=== PATIENT | male | born 2000 | race Hispanic/Latino ===

== ENCOUNTER 2021-10-27 02:52 | Emergency (ER) | payer SELFPAY ==
[2021-10-27 03:05] VITALS: BP 144/66
--- NOTE | 2021-10-27 04:50 | Emergency Department Report ---
ED ENT HPI - General Chief complaint: Dental/Oral Stated complaint: DENTAL PAIN Time Seen by Provider: 10/27/21 04:44 Source: patient Mode of arrival: Ambulatory Limitations: No Limitations - History of Present Illness Initial comments: 21-year-old male presents to the ER today with complaints of dental pain to right lower jaw. Patient states that has been having pain to one of his posterior right lower molars off and on for about 2 months. He states that he had a root canal to one of the molars few years ago but the cap fell off about 2 months ago. He states that in the past week he has been having increasing pain to the right lower molar and last night got worse and this morning noticed swelling to his right lower jaw. He states that he currently does not have a dentist. They are currently visiting from [place]. He has been taking Tyl enol without much relief of pain. He denies any fever, chills, trismus, drooling or any additional symptoms at this time. MD complaint: tooth pain -: week(s) (1) - Related Data Previous Rx's Medication Instructions Recorded Last Taken Type Acetaminophen/Codeine [Tylenol 2 tab PO Q4HR PRN #10 tablet 10/27/21 Unknown Rx /Codeine # 3 tab] Amoxicillin [Trimox CAP] 500 mg PO Q8H #30 capsule 10/27/21 Unknown Rx Ketorolac [Toradol] 10 mg PO Q6HR PRN #20 tablet 10/27/21 Unknown Rx ED Dental HPI - General Chief complaint: Dental/Oral Stated complaint: DENTAL PAIN Time Seen by Provider: 10/27/21 04:44 Source: patient Mode of arrival: Ambulatory Limitations: No Limitations - Related Data Previous Rx's Medication Instructions Recorded Last Taken Type Acetaminophen/Codeine [Tylenol 2 tab PO Q4HR PRN #10 tablet 10/27/21 Unknown Rx /Codeine # 3 tab] Amoxicillin [Trimox CAP] 500 mg PO Q8H #30 capsule 10/27/21 Unknown Rx Ketorolac [Toradol] 10 mg PO Q6HR PRN #20 tablet 10/27/21 Unknown Rx ED Review of Systems ROS: Stated complaint: DENTAL PAIN Other details as noted in HPI Comment: All other systems reviewed and negative Constitutional: denies: chills, fever Eyes: denies: eye pain, eye discharge, vision change ENT: dental pain. denies: ear pain, throat pain, hearing loss, epistaxis, congestion Respiratory: denies: cough, shortness of breath, SOB with exertion, SOB at rest, wheezing Cardiovascular: denies: chest pain, palpitations, dyspnea on exertion, edema, syncope, paroxysmal nocturnal dyspnea Gastrointestinal: denies: abdominal pain, nausea, diarrhea Genitourinary: denies: urgency, dysuria, frequency, hematuria, discharge, testicular pain, testicular mass Musculoskeletal: denies: back pain, joint swelling, arthralgia Skin: denies: rash, lesions, change in color, change in hair/nails, pruritus Neurological: denies: headache, weakness, numbness, paresthesias, confusion, abnormal gait, vertigo Psychiatric: denies: anxiety, depression, auditory hallucinations, visual hallucinations, homicidal thoughts, suicidal thoughts Hematological/Lymphatic: denies: easy bleeding, easy bruising, swollen glands ED Past Medical Hx - Medications Home Medications: Home Medications Medication Instructions Recorded Confirmed Last Taken Type Acetaminophen/Codeine [Tylenol 2 tab PO Q4HR PRN #10 tablet 10/27/21 Unknown Rx /Codeine # 3 tab] Amoxicillin [Trimox CAP] 500 mg PO Q8H #30 capsule 10/27/21 Unknown Rx Ketorolac [Toradol] 10 mg PO Q6HR PRN #20 tablet 10/27/21 Unknown Rx ED Physical Exam - General Limitations: No Limitations General appearance: alert, in no apparent distress - Head Head exam: Present: atraumatic, normocephalic, normal inspection - Eye Eye exam: Present: normal appearance, PERRL, EOMI Pupils: Present: normal accommodation - ENT ENT exam: Present: mucous membranes moist - Expanded ENT Exam Expanded Mouth exam: Present: normal external inspection 1 - Dental Tenderness (+ dental decay), Other (mild gum swelling; mild swelling external lower jaw, no cellulitis) Throat exam: Positive: normal inspection - Neck Neck exam: Present: normal inspection, full ROM. Absent: meningismus - Respiratory Respiratory exam: Absent: respiratory distress - Cardiovascular Cardiovascular Exam: Present: regular rate - Neurological Exam Neurological exam: Present: alert, oriented X3, CN II-XII intact, normal gait - Psychiatric Psychiatric exam: Present: normal affect, normal mood - Skin Skin exam: Present: intact ED Course Vital Signs 10/27/21 02:56 Temperature 97.8 F Pulse Rate 56 L Respiratory 18 Rate Blood Pressure 144/66 O2 Sat by Pulse 100 Oximetry Critical care attestation.: If time is entered above; I have spent that time in minutes in the direct care of this critically ill patient, excluding procedure time. ED Disposition Clinical Impression: Periapical abscess Disposition: HOME / SELF CARE / HOMELESS Is pt being admited?: No Does the pt Need Aspirin: No Condition: Stable Instructions: Dental Abscess, [id number] Additional Instructions: I recommend that you take the antibiotics as prescribed to completion. Take the pain meds as prescribed. You can do warm salt water rinses also to help with pain and swelling. Follow-up with dentist on return to [place]. Return to the ER symptoms changes or worsens in any way. Prescriptions: Ketorolac [Toradol] 10 mg PO Q6HR PRN #20 tablet PRN Reason: Pain, Moderate (4-6) Amoxicillin [Trimox CAP] 500 mg PO Q8H #30 capsule Acetaminophen/Codeine [Tylenol /Codeine # 3 tab] 2 tab PO Q4HR PRN #10 tablet PRN Reason: Pain , Severe (7-10) Referrals: PRIMARY CARE, [Referring] - 3-5 Days Time of Disposition: 04:50
[2021-10-27] MEDS ORDERED: KETOROLAC 10 MG TAB PO ONE (05:48)
[2021-10-27] MEDS ORDERED: ACETAMINOPHEN W/CODEINE 300-30 MG TAB PO ONE (05:48)
== END 2021-10-27 05:19 | disposition home or self-care (01) ==
LOC: ED 02:52
DX: K04.7 Periapical abscess without sinus (principal); Z88.0 Allergy status to penicillin; Z79.899 Other long term (current) drug therapy
CPT/HCPCS: 99282